=== PATIENT | male | born 1955 | race Caucasian/White ===

== ENCOUNTER → 2016-04-23 | Outpatient (CLI) | payer OTHER ==
[2016-04-23 13:41] LABS: HEMOGLOBIN 12.3 gm/dl (14.0-17.5); RED BLOOD COUNT 3.96 M/UL (4.20-5.50); WHITE BLOOD COUNT 2.6 K/UL (4.5-11.0)
== END ==
LOC: LAB 13:13
PROVIDERS: Internal Medicine Hematology & Oncology
DX: C85.90 Non-Hodgkin lymphoma, unspecified, unspecified site (principal); D64.9 Anemia, unspecified
CPT/HCPCS: 36415; 85025

== ENCOUNTER → 2016-05-11 | Outpatient (CLI) | payer OTHER ==
[2016-05-11 12:03] LABS: HEMOGLOBIN 14.4 gm/dl (14.0-17.5); RED BLOOD COUNT 4.49 M/UL (4.20-5.50); WHITE BLOOD COUNT 6.2 K/UL (4.5-11.0)
[2016-05-11 12:14] LABS: BUN/CREATININE RATIO 18 (0-10)
== END ==
LOC: LAB 11:33
PROVIDERS: Internal Medicine Hematology & Oncology
DX: C09.1 Malignant neoplasm of tonsillar pillar (anterior) (posterior) (principal); C83.34 Diffuse large B-cell lymphoma, lymph nodes of axilla and upper limb
CPT/HCPCS: 36415; 80053; 85025

== ENCOUNTER 2016-08-11 14:14 | Emergency (ER) | payer OTHER ==
[2016-08-11 16:22] LABS: HEMOGLOBIN 12.9 gm/dl (14.0-17.5); RED BLOOD COUNT 4.09 M/UL (4.20-5.50)
[2016-08-11 16:35] LABS: BUN/CREATININE RATIO 29 (0-10)
== END 2016-08-11 21:20 | disposition home or self-care (01) ==
LOC: ER1 14:14
PROVIDERS: Emergency Medicine
DX: R11.2 Nausea with vomiting, unspecified (principal); K59.00 Constipation, unspecified; C18.9 Malignant neoplasm of colon, unspecified; Z93.1 Gastrostomy status
CPT/HCPCS: 36415; 74022; 80053; 82550; 82553; 83605; 83690; 83874; 84484; 85025; 85610; 85730; 96374; 96375; 99284; J2405; J2550; J2765; J7050; Q9962

== ENCOUNTER → 2020-08-21 | Outpatient (CLI) | payer MEDICARE | LOC: RAD 14:47 | DX: S69.91XA Unspecified injury of right wrist, hand and finger(s), initial encounter (principal) | CPT/HCPCS: 73140 ==